=== PATIENT | male | born 1995 | race African-American/Black ===

== ENCOUNTER 2017-04-26 02:57 | Emergency (ER) | payer SELFPAY ==
[~2017-04-26] VITALS: Ht 190.5 cm; Wt 77.1 kg
[~2017-04-26 02:57] MED LIST: IBUPROFEN800 MG PO
[2017-04-26 04:05] LABS: URINE SOURCE CLEAN CATCH
[2017-04-26 04:09] LABS: URINE APPEARANCE CLEAR; URINE BILIRUBIN NEG (NEG); URINE BLOOD TRACE-INTACT (NEG); URINE COLOR YELLOW; URINE GLUCOSE NEG (NORM); URINE KETONE NEG (NEG); URINE LEUKOCYTE ESTERASE TRACE (NEG); URINE NITRATE NEG (NEG); URINE PROTEIN TRACE (NEG); URINE UROBILINOGEN 0.2 MG/DL (NORM)
[2017-04-26 04:14] LABS: MICRO INDICATED? YES
[2017-04-26 04:18] LABS: CULTURE INDICATED? YES; URINE AMORPHOUS SEDIMENT AMORP URATES; URINE BACTERIA NEG (NEG); URINE MUCUS PRESENT
[2017-04-29 00:04] LABS: CHLAMYDIA TRACH Detected (Not Detected); N GONOR Not Detected (Not Detected)
== END 2017-04-26 04:55 | disposition home or self-care (01) ==
LOC: SED 02:57
PROVIDERS: Emergency Medicine
DX: N34.2 Other urethritis (principal)
CPT/HCPCS: 81003; 87086; 87491; 87591; 96372; 99283; J0696